=== PATIENT | female | born 1935 | race Caucasian/White ===

== ENCOUNTER → 2016-10-29 | Outpatient (CLI) | payer MEDICARE, OTHER | LOC: COL.RAD 10:00 | DX: M16.0 Bilateral primary osteoarthritis of hip (principal) | CPT/HCPCS: J3301; Q9967 ==

== ENCOUNTER → 2016-11-30 | Outpatient (CLI) | payer MEDICARE, OTHER | LOC: COL.RAD 10:10 | DX: M16.12 Unilateral primary osteoarthritis, left hip (principal) | CPT/HCPCS: J3301; Q9967 ==

== ENCOUNTER → 2017-01-14 | Outpatient (CLI) | payer MEDICARE, OTHER ==
[2017-01-14 11:55] LABS: PH 5 (5-8); URINE APPEARANCE Hazy; URINE BACTERIA Rare /hpf; URINE BILIRUBIN Negative (NEGATIVE); URINE BLOOD Negative (NEGATIVE); URINE COLOR Yellow; URINE GLUCOSE Negative (NEGATIVE); URINE KETONE Negative (NEGATIVE); URINE RBC 0-2 /hpf; URINE UROBILINOGEN Negative (NEGATIVE); URINE WBC 0-2 /hpf
== END ==
LOC: COL.LAB 11:06
PROVIDERS: Orthopaedic Surgery Sports Medicine
DX: Z96.642 Presence of left artificial hip joint (principal)

== ENCOUNTER → 2017-07-07 | Outpatient (CLI) | payer MEDICARE, OTHER | LOC: COL.RAD 08:37 | DX: M25.551 Pain in right hip (principal) | CPT/HCPCS: J3301; Q9967 ==

== ENCOUNTER → 2017-10-01 | Outpatient (CLI) | payer MEDICARE, OTHER | LOC: COL.LAB 11:08 | DX: Z01.812 Encounter for preprocedural laboratory examination (principal) ==